=== PATIENT | female | born 1930 | race Caucasian/White ===

== ENCOUNTER 2017-01-28 15:44 | Emergency (ER) | payer MEDICARE ==
[~2017-01-28 15:44] MED LIST: AMLODIPINE BESY10 MG PO; ASPIR 8181 MG PO; CALCIUM 600 +1 EAC5 PO; GABAPENTIN300 MG PO; KLOR-CON M2020 MEQ PO; LOSARTAN-HCTZ1 EAC1 PO; POLYOX WSR-3011 GM MC; PRILOSEC20 MG PO
[2017-01-28] MEDS ORDERED: NORVASC10 M2 PO (15:57)
[2017-01-28] MEDS ORDERED: HYZAAR 100-251 EACH PO (15:57)
[2017-01-28] MEDS ORDERED: POTASSIUM CHLO20 ME3 PO (15:57)
[2017-01-28] MEDS ORDERED: PRILOSEC OTC20 M1 PO (15:58)
[2017-01-28] MEDS ORDERED: OS-CAL 500+D31 EAC1 PO (15:59)
[2017-01-28] MEDS ORDERED: ADVIL200 M3 PO (15:59)
[2017-01-28] MEDS ORDERED: ASPIRIN81 M1 PO (16:00)
== END 2017-01-28 16:40 ==
LOC: EDMED 15:44
DX: S02.2XXA Fracture of nasal bones, initial encounter for closed fracture (principal); I10 Essential (primary) hypertension; Z79.899 Other long term (current) drug therapy; W01.198A Fall on same level from slipping, tripping and stumbling with subsequent striking against other object, initial encounter